=== PATIENT | male | born 1950 | race Hispanic/Latino ===

== ENCOUNTER → 2019-04-21 | Outpatient (CLI) | payer MEDICARE ==
--- NOTE | 2019-04-22 08:48 | Diagnostic Imaging Report ---
PROCEDURE: X-RAY MODIFIED BARIUM SWALLOW COMPARISON: None. INDICATION: Dysphagia Radiation Details: Fluoroscopy time: 1.8 minutes Cumulative dose: 5.77 mGy DISCUSSION: Fluoroscopic examination was performed in conjunction with speech pathology during swallowing a variety of thin and thick liquid consistencies. Provided images demonstrate intermittent trace laryngeal penetration and no aspiration. CONCLUSION: Modified barium swallow demonstrating intermittent trace laryngeal penetration and no aspiration. Please refer to the speech pathology report for further details. Signed by: Laura Valentino MD on 04/22/2019 8:44 AM
== END ==
LOC: DX 11:43
PROVIDERS: ATTEND Family Medicine
DX: R13.19 Other dysphagia (principal)
CPT/HCPCS: 74230

== ENCOUNTER → 2021-12-28 | Outpatient (CLI) | payer MEDICARE | LOC: CT 09:50 | PROVIDERS: ATTEND Internal Medicine Cardiovascular Disease | DX: G45.9 Transient cerebral ischemic attack, unspecified (principal) | CPT/HCPCS: 70450 ==